=== PATIENT | female | born 1925 | race Caucasian/White ===

== ENCOUNTER 2016-05-17 16:35 | Emergency (ER) | payer MEDICARE, BC ==
[2016-05-17] MEDS ORDERED: ceFUROXime TAB(*) 250 MG PO ONE (17:47)
--- NOTE | 2016-05-17 17:47 | UC ---
Complaint Female HPI - HPI Summary HPI Summary: URINARY FREQUENCY , URGENCY , DYSRUIA X 2 DAYS ' NO FEVER, NO CHILLS, NO FLANK PAIN + COLD SYMPTOMS WITH COUGH , RUNNY NOSE , CHEST CONGESTION X 7 DAYS - History Of Current Complaint Chief Complaint: UCGU Stated Complaint: URINARY COMPLAINT Time Seen by Provider: 05/17/16 16:54 Hx Obtained From: Patient Onset/Duration: Gradual Onset, Lasting Days - 1, Still Present Timing: Constant Severity Initially: Moderate Severity Currently: Moderate Character: Burning Aggravating Factor(s): Urination Alleviating Factor(s): Nothing Associated Signs And Symptoms: Negative: Fever, Back Pain, Vaginal Bleeding/ Discharge, Vaginal Discharge, Nausea, Vomiting(# Of Episodes =), Genital Swelling, Genital Blisters, Retained Foregin Body (Specify) - Allergies/Home Medications Allergies/Adverse Reactions: Allergies Allergy/AdvReac Type Severity Reaction Status Date / Time Amoxicillin [From Augmentin] Allergy Intermediate Diarrhea Verified 05/17/16 17: 24 Ciprofloxacin [From Cipro] Allergy Intermediate Hives Verified 05/17/16 17:24 Clavulanic Acid Allergy Intermediate Diarrhea Verified 05/17/16 17:24 [From Augmentin] Levofloxacin [From Levaquin] Allergy Intermediate Hives Verified 05/17/16 17:24 Sulfa Drugs Allergy Intermediate Rash Verified 05/17/16 17:24 Metoclopramide [From Reglan] AdvReac Intermediate See Comment Verified 05/17/16 17:24 Morphine AdvReac Intermediate Vomiting Verified 05/17/16 17:24 Home Medications: Home Medications Zolpidem TAB* [Ambien TAB*] 5 mg PO BEDTIME 05/17/16 [History Confirmed 05/17/16 ] PMH/Surg Hx/FS Hx/Imm Hx Endocrine History Of: Denies: Diabetes Cardiovascular History Of: Reports: Cardiac Disorders - catheterization -neg, Hypertension - controlled by medication Denies: Congestive Heart Failure, Deep Vein Thrombosis GI/ History Of: Denies: Renal Disease - Surgical History Surgical History: Yes Surgery Procedure, Year, and Place: open Heart SX 2000 Dr Jacobs at [facility], cardiac stent 2010, rt knee SX 06/2013 done at [facility]; 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.LEFT CAROTID ENDARECTOMY JULY 2013, left knee 2008 - Family History Known Family History: Negative: Diabetes - Social History Alcohol Use: None Substance Use Type: None Smoking Status (MU): Never Smoked Tobacco Review of Systems Constitutional: Negative Skin: Negative Eyes: Negative ENT: Negative Respiratory: Negative All Other Systems Reviewed And Are Negative: Yes Physical Exam Triage Information Reviewed: Yes Appearance: Well-Appearing, No Pain Distress, Well-Nourished Vital Signs: Initial Vital Signs Temp 99 F 05/17/16 17:15 Pulse 84 05/17/16 17:15 Resp 18 05/17/16 17:15 BP 148/59 05/17/16 17:15 Pulse Ox 99 05/17/16 17:15 Vital Signs Reviewed: Yes Eye Exam: Normal Eyes: Positive: Conjunctiva Clear ENT: Positive: Normal ENT inspection, Hearing grossly normal, Pharynx normal, Nasal congestion, Nasal drainage Neck exam: Normal Neck: Positive: Supple, Nontender, No Lymphadenopathy Respiratory Exam: Normal Respiratory: Positive: Chest non-tender, Lungs clear, Normal breath sounds Cardiovascular Exam: Normal Cardiovascular: Positive: RRR, Pulses Normal Abdomen Description: Positive: Nontender, Soft. Negative: CVA Tenderness (R), CVA Tenderness (L), Distended, Guarding Bowel Sounds: Positive: Present Skin Exam: Normal Complaint Female Dx - Differential Dx/Diagnosis Provider Diagnoses: UTI. URI Discharge - Discharge Plan Condition: Stable Disposition: HOME Prescriptions: Cefuroxime 500 MG(NF) 500 mg PO BID #14 tab Patient Education Materials: Urinary Tract Infection in Women (ED), Upper Respiratory Infection (ED) Referrals: Germaine Lopez MD [Primary Care Provider] - 7 Days
[2016-05-17 17:56] VITALS: BP 160/70
== END 2016-05-17 18:00 | disposition home or self-care (01) ==
LOC: UCCORT 16:35
DX: N39.0 Urinary tract infection, site not specified (principal); J06.9 Acute upper respiratory infection, unspecified; Z88.1 Allergy status to other antibiotic agents; Z88.5 Allergy status to narcotic agent; Z88.2 Allergy status to sulfonamides; I10 Essential (primary) hypertension; Z95.5 Presence of coronary angioplasty implant and graft
CPT/HCPCS: 81003; 87086; 99212; G0463